=== PATIENT | female | born 1970 | race Caucasian/White ===

== ENCOUNTER 2016-06-11 14:13 | Emergency (ER) | payer OTHER ==
[2016-06-11 14:41] VITALS: BP 129/76; PULSE 71; RESP 16; TEMP 98.6; O2SAT 98
--- NOTE | 2016-06-11 14:55 | UCPHY ---
H & P Time Seen by Provider: 06/11/16 14:38 Patient Type: New HPI/ROS: HPI Nasal congestion, congestion in years. 46-year-old female by private vehicle. This patient reports that as of today she has felt a sensation of fullness in her ears as well as nasal congestion and a mildly scratchy throat. No fever. No other complaints. She is given a presentation tomorrow and is concerned that her symptoms will worsen. ROS: Constitutional: No fever, no chills. No weakness. Eyes: No discharge. No changes in vision. ENT: As above. No tinnitus. Respiratory: No cough. No shortness of breath. Cardiac: No chest pain, no palpitations. Gastrointestinal: No abdominal pain, no vomiting, no diarrhea. Genitourinary: No hematuria. No dysuria or increased frequency with urination. Musculoskeletal: No back pain. No neck pain. No myalgias or arthralgias. Skin: No rashes. Neurological: No headache. No focal weakness or altered sensation. Past medical history: x2. Otherwise no significant past medical history. Social history: . Nonsmoker. Physical Exam: General Appearance: Alert, no distress. This patient is responding to questions appropriately and in full sentences. This patient appears well- hydrated and well-nourished. Eyes: Pupils equal and round no pallor or injection. No lid edema, erythema or injection. ENT, Mouth: Mucous membranes are moist. The pharyngeal tissues are unremarkable. No edema or swelling. No asymmetry suggestive of abscess. No erythema or exudates. The external auditory canals and tympanic membranes are normal on speculum examination bilaterally. No evidence of otitis externa or otitis media. Respiratory: There are no retractions, lungs are clear to auscultation with good air movement bilaterally. Cardiovascular: Regular rate and rhythm. No murmur. Neurological: Motor sensory function is grossly intact. Cranial nerves are normal. Gait is normal. Skin: Warm and dry, no rashes. Musculoskeletal: Neck is supple and nontender. No cervical, submental, submandibular lymphadenopathy. Extremities are symmetrical. All joints range without pain or impingement. Psychiatric: No agitation. No depression. Database: EKG: Imaging: Procedures: Emergency department course: After my evaluation of this patient as stated above, I recommended treatment with [id number] cough and cold medications such as NyQuil and DayQuil for treatment. I also discussed Flonase usage tonight to off set any worsening nasal congestion tomorrow and she is giving her presentation. She feels comfortable going home and I feel she is safe for discharge. Follow-up and return to Urgent Care precautions discussed with her. All of her questions were answered. She was discharged in good condition. Differential Diagnosis: The differential diagnosis on this patient includes but is not limited to viral syndrome, allergic rhinitis. Influenza, Meniere syndrome, otitis media, otitis externa, serious bacterial infection unlikely. This represents a partial list of diagnoses considered. These considerations are based on history, physical exam, past history, reassessment and diagnostic testing. Smoking Status: Never smoked Constitutional: Initial Vital Signs Temperature (C) 37.0 C 06/11/16 14:35 Heart Rate 71 06/11/16 14:35 Respiratory Rate 16 06/11/16 14:35 Blood Pressure 129/76 H 06/11/16 14:35 O2 Sat (%) 98 06/11/16 14:35 O2 Delivery Mode Room Air Allergies/Adverse Reactions: Penicillins Allergy (Verified 06/11/16 14:42) Sulfa (Sulfonamide Antibiotics) Allergy (Verified 06/11/16 14:41) Home Medications: Medication Instructions Recorded Propranolol HCl PRN 06/11/16 Departure - Departure Disposition: Home, Routine, Self-Care Clinical Impression: Upper respiratory infection Condition: Good Instructions: Upper Respiratory Infection (ED) Additional Instructions: Read and follow provided instructions. Follow-up with your primary care physician in 1-2 days for re-evaluation as needed. Use DayQuil as directed during working hours for relief of nasal congestion. NyQuil can be used in the evening before sleeping. It will make her drowsy. As discussed you can administer 2 squirts of Flonase 2 each nostril tonight to help ensure that you do not have any significant nasal congestion tomorrow morning when your giving your presentation. Return to the emergency department for worsening symptoms or other serious concerns. Referrals: NONE *PRIMARY CARE P,. [Primary Care Provider] - As per Instructions - PQRS PQRS Measurement: Not applicable.
== END 2016-06-11 14:55 | disposition home or self-care (01) ==
LOC: CED 14:13
DX: J06.9 Acute upper respiratory infection, unspecified (principal)
CPT/HCPCS: G0463-PO